=== PATIENT | female | born 1975 | race African-American/Black ===

== ENCOUNTER → 2017-07-19 | Outpatient (CLI) | payer OTHER ==
--- NOTE | ~2017-07-19 | MR17 ---
[facility] A Service of [facility] & [facility] RADIOLOGY TEXT RESULTS PATIENT: VIJI ELLER LOCATION: CEEG : 77 UNIT #: [id number] AGE: [address]: SHIRA FENG SEX: F ORDER DR: [id number] [facility] [address] [place], [place] [address] [id number] O MR#: [id number] Acc #: [id number] NAME: VIJI ELLER : 1975 SEX: F STUDY DATE/TIME: 07/19/2017 9:55 UNIT: CEEG ROOM: STUDY DESCRIPTION: MR Brain WWo Contrast Attending Physician: Shira Feng M.D. Referring Physician: Shira Feng M.D. Ordering Physician: Staff Doctor Not On Primary Care Physician: Romero Mccarthy Aprn MRI CENTER REPORT This report is preliminary unless electronic signature is present. EXAM MRI of the brain with and without HISTORY Complains of severe headaches for 8 years with aura and confusion for 5 years off and on. No history of head trauma or seizure. No history of cancer. TECHNIQUE/COMPARISON MRI brain was performed prior to and following intravenous administration of 14 mL of MultiHance. There is a head CT for comparison from 2005. FINDINGS There is no evidence for a recent ischemic insult on the diffusion series. Incidental note made of a partially empty sella. There is no Chiari-1 malformation. There is no MRI evidence for intracranial hemorrhage. There is no extraaxial fluid collection. No intracranial mass effect. There is mild white matter signal abnormality which is nonspecific. Several of the lesions are perpendicularly oriented with respect to the ventricular system and given the patient's gender and age group. The possibility of demyelinating disease such as multiple sclerosis should be included in the differential. White matter signal abnormality is most prominent in the deep to periventricular white matter though there is also a small focal lesion in the left posterolateral frontal subcortical white matter. The major arterial intracranial flow voids are maintained. The mastoid air cells are clear. The visualized paranasal sinuses are clear. Following contrast administration, there is no pathologic intracranial enhancement. No intracranial mass lesion or mass effect. IMPRESSION 1. There is mild nonspecific white matter signal abnormality. Most of the white matter signal abnormality is in the deep to STS. [facility] A Service of [facility] RADIOLOGY TEXT RESULTS PATIENT: VIJI ELLER LOCATION: CEEG : [birth year] UNIT #: [id number] AGE: [address]: SHIRA FENG SEX: F ORDER DR: periventricular white matter and several of the lesions are perpendicularly oriented with respect to the ventricular system. Given this appearance as well as the patient's age and gender, please consider the possibility of demyelinating disease such as multiple sclerosis. Please correlate additionally for risk factors for small vessel disease. It is possible the findings are a manifestation of severe longstanding migraine. Some less likely considerations include vasculitis or Lyme's disease. 2. There is no pathologic intracranial enhancement or mass effect. No restricted diffusion is appreciated. Dictated by... Luci Camara M.D. THIS IS AN ELECTRONICALLY VERIFIED REPORT Luci Camara M.D. at 07/20/2017 1:51 PM DWAIN/tacos TD: 07/20/2017 09:11 JOB #: [id number] MRI CENTER REPORT Page 1 of 1 COPY
--- NOTE | ~2017-07-19 | EE ---
Unit #: [id number] #: [id number] Patient: VIJI ELLER [id number] [address] [address] [id number] O MR#: [id number] NAME: VIJI ELLER : 1975 SEX: F STUDY DATE/TIME: 07/19/2017 UNIT: CEEG ROOM: STUDY DESCRIPTION: EEG Attending Physician: Shira Baires M.D. Referring Physician: Shira Baires M.D. Primary Care Physician: Romero Mccarthy Aprn NEURODIAGNOSTICS REPORT EXAM EEG. TECH Angeline. REASON FOR STUDY Seizures. TECHNICAL INFORMATION This is a routine EEG performed using the standard international 10-20 system of electrode placement. Photic stimulation was performed. Hyperventilation was also performed. REPORT Throughout the entire study, the best background rhythm seen is approximately 10 Hz. This rhythm is seen in both posterior head regions symmetrically and does attenuate to eye opening and closure. Hyperventilation was performed, which failed to reproduce any abnormal buildup. Photic stimulation was also performed, which did not elicit any epileptiform abnormalities; however, good photic driving response was seen. There was no sleep recorded during the EEG. Throughout the entire study there were no electrographic seizures recorded, nor were there any independent epileptiform abnormalities seen. INTERPRETATION This is a normal awake EEG. A normal EEG does not rule out the possibility of a seizure disorder. Clinical correlation is advised. Dictated by... Joey Kaiser II., M.D. GWS/joanna TD: 07/21/2017 13:24 JOB #: [id number] Unit #: [id number] #: [id number] Patient: VIJI ELLER NEURODIAGNOSTICS REPORT Page 1 of 1 X NEURODIAGNOSTICS REPORT
== END | disposition home or self-care (01) ==
LOC: CEEG 07-10 08:00
DX: R41.0 Disorientation, unspecified (principal); R90.82 White matter disease, unspecified; G93.89 Other specified disorders of brain
CPT/HCPCS: 70553; 95816; A9577